=== PATIENT | female | born 1960 | race Caucasian/White ===

== ENCOUNTER 2018-01-02 12:51 | Emergency (ER) | payer BC ==
[~2018-01-02] VITALS: Ht 162.6 cm; Wt 81.3 kg
[2018-01-02 13:30] LABS: BASOPHIL (%) 0.6 % (0-1); EOSINOPHIL (%) 2.5 % (0-5); EOSINOPHIL COUNT 0.2 K/uL (0-0.3); HEMATOCRIT 43.6 % (36.0-46.0); HEMOGLOBIN 14.9 G/DL (11.9-15.5); IMMATURE GRANULOCYTE (%) 0.3 % (0.0-0.7); LYMPHOCYTE (%) 39.9 % (15-42); LYMPHOCYTE COUNT 2.8 K/uL (1.0-2.8); MCH 31.7 PG (29.0-34.0); MCHC 34.2 G/DL (30.0-36.0); MCV 92.8 FL (83-99); MONOCYTE (%) 9.6 % (3-12); MONOCYTE COUNT 0.7 K/uL (0-0.8); NEUTROPHIL (%) 47.1 % (45-76); NEUTROPHIL COUNT 3.4 K/uL (1.8-6.4); PLATELET COUNT 244 K/uL (156-360); RBC DIS.WIDTH-CV 12.7 % (11.8-14.6); RBC DIS.WIDTH-SD 43.7 % (39-53); WHITE BLOOD COUNT 7.1 K/uL (4.1-10.2)
[2018-01-02 13:38] LABS: D-DIMER ELISA < 150.00 ng/mLDDU (<230)
[2018-01-02 13:43] LABS: CHLORIDE 106 mEq/L (99-109); POTASSIUM 4.9 mEq/L (3.7-5.4); SODIUM 139 mEq/L (136-147)
[2018-01-02 13:45] LABS: GLUCOSE 98 mg/dL (70-99)
[2018-01-02 13:49] LABS: CREATININE 0.8 mg/dL (0.6-1.3); GFR ESTIMATE (CALCULATED) > 59 mL/min/
[2018-01-02 13:50] LABS: UREA NITROGEN (BUN) 21 mg/dL (9-23)
[2018-01-02 13:53] LABS: TROP-I INTERPRETATION NEGATIVE; TROPONIN-I < 0.01 ng/mL (0.0-0.30)
[2018-01-02 16:40] LABS: APPEARANCE CLEAR ((CLEAR)); BILIRUBIN NEGATIVE; BLOOD NEGATIVE; COLOR STRAW ((YELLOW)); GLUCOSE (STRIP) NEGATIVE; KETONES 20; LEUKOCYTES NEGATIVE; NITRITE NEGATIVE; PROTEIN (STRIP) NEGATIVE; SPECIFIC GRAVITY 1.011 (1.000-1.030); UROBILINOGEN 0.2 MG/DL (0.2-1.0)
[2018-01-02] MEDS ORDERED: MULTIVITAMIN1 EAC2 PO (17:06)
[2018-01-02] MEDS ORDERED: MOTRIN800 MG PO (18:08)
[2018-01-02] MEDS ORDERED: ANTIVERT25 MG PO (18:08)
[2018-01-02 18:26] LABS: TROP-I INTERPRETATION NEGATIVE; TROPONIN-I < 0.01 ng/mL (0.0-0.30)
[2018-01-02 18:51] VITALS: BP 126/95
== END 2018-01-02 19:11 | disposition home or self-care (01) ==
LOC: EME 12:51
PROVIDERS: Physician Assistant
DX: R07.89 Other chest pain (principal); R07.0 Pain in throat; R42 Dizziness and giddiness; J38.5 Laryngeal spasm; I49.3 Ventricular premature depolarization; J98.11 Atelectasis; M47.892 Other spondylosis, cervical region; Z88.5 Allergy status to narcotic agent
CPT/HCPCS: 70491; 71045; 71275; 80048; 81003; 83735; 84443; 84484; 85025; 85379; 87502; 93005; 99281; 99284; J7030